=== PATIENT | female | born 1955 | race Caucasian/White ===

== ENCOUNTER 2021-02-04 06:56 | Day surgery (SDC) | payer MEDICARE, BC ==
[~2021-02-04] VITALS: Ht 162.6 cm; Wt 98.0 kg
[2021-02-04] VITALS (11 sets, daily range): BP systolic 115–159; BP diastolic 71–95; PULSE 60–71; TEMP 98
[2021-02-04] MEDS ORDERED: CYMBALTA 60MG60 MG PO (07:20)
[2021-02-04] MEDS ORDERED: HCTZ12.5TAB PO (07:21)
[2021-02-04] MEDS ORDERED: LEVOXYL0.2 MG PO (07:21)
[2021-02-04] MEDS ORDERED: BENICAR40 MG PO (07:23)
[2021-02-04] MEDS ORDERED: INDERAL80 MG PO (07:24)
[2021-02-04] MEDS ORDERED: CENTRUM SILVER1 TAB PO (07:24)
[2021-02-04] MEDS ORDERED: NATURE'S BLEND100 M2 PO (07:25)
[2021-02-04] MEDS ORDERED: VITAMIN B125000 MCG PO (07:25)
[2021-02-04] MEDS ORDERED: VITAMIN B COMPL1 SGL PO (07:26)
[2021-02-04] MEDS ORDERED: VITAMIND3 5000 PO (07:26)
[2021-02-04] MEDS ORDERED: NATURE'S BLEND500 M1 PO (07:28)
[2021-02-04] MEDS ORDERED: PHARMASSURE ZIN50 MG PO (07:29)
[2021-02-04] MEDS ORDERED: NATURAL MAGNES200 MG PO (07:29)
[2021-02-04] MEDS ORDERED: FLAXSEED OIL1000 MG PO (07:29)
[2021-02-04] MEDS ORDERED: PHILITH PO (07:30)
[2021-02-04 08:13] LABS: HEMATOCRIT 37.4 % (37.0-47.0); HEMOGLOBIN 12.2 g/dl (12.5-16.0); MEAN CELL VOLUME 81 fl (80.0-100.0); MEAN CORPUSCULAR HEMOGLOBIN 26 pg (27.0-31.0); MEAN CORPUSCULAR HGB CONC 33 g/dl (33.0-37.0); MEAN PLATELET VOLUME 8.7 fl (7.4-10.4); PLATELET COUNT 470 K/mm3 (130-400); RED BLOOD COUNT 4.62 M/mm3 (4.10-5.30); REDCELL DISTRIBUTION WIDTH-CV 14.4 % (11.5-14.5)
[2021-02-04 08:22] LABS: CREATININE, serum 0.69 mg/dL (0.57-1.11); POTASSIUM 3.8 mmol/L (3.5-4.5)
[2021-02-04 08:29] LABS: PROTHROMBIN TIME 11.4 SECONDS (9.7-12.8)
[2021-02-04 08:31] LABS: PARTIAL THROMBOPLASTIN TIME 34.2 SECONDS (26.0-37.0)
--- NOTE | 2021-02-04 08:35 | NUR ---
SEE MERGE FOR MEDICATION ADMINISTRATIONS TIMES AND DOSAGES AND INTRA/POST SEDATION ASSESSMENT.
--- NOTE | 2021-02-04 09:45 | NUR ---
Report from Codie BROWN. Transferred by bed from [employer]. Alert and oriented, bedside. 12 cc air to right Tband CD&I, good pulses and cap refill < 3 secs noted. VSS. Will monitor
--- NOTE | 2021-02-04 13:30 | NUR ---
14 cc air released from right Tband and dressing applied. INT discontinued intact. Discharge instructions given. Transferred to private car by mario
== END 2021-02-04 13:40 | disposition home or self-care (01) ==
LOC: COL.CAR 06:56
PROVIDERS: Internal Medicine Cardiovascular Disease
DX: R94.39 Abnormal result of other cardiovascular function study (principal); R06.02 Shortness of breath; R42 Dizziness and giddiness; R49.8 Other voice and resonance disorders; K21.9 Gastro-esophageal reflux disease without esophagitis; I10 Essential (primary) hypertension; D50.9 Iron deficiency anemia, unspecified; G47.33 Obstructive sleep apnea (adult) (pediatric); Z99.89 Dependence on other enabling machines and devices; Z90.710 Acquired absence of both cervix and uterus; Z90.89 Acquired absence of other organs; Z79.82 Long term (current) use of aspirin; Z79.899 Other long term (current) drug therapy; Z79.890 Hormone replacement therapy; Z83.3 Family history of diabetes mellitus; Z82.49 Family history of ischemic heart disease and other diseases of the circulatory system
CPT/HCPCS: C1769; J1644; J2250; J3010; Q9967